=== PATIENT | female | born 1975 | race Caucasian/White ===

== ENCOUNTER → 2021-01-22 | Outpatient (CLI) | payer OTHER ==
[~2021-01-22] MED LIST: SUMA50TA3 PO; THYR90TA PO
[2021-01-22 09:39] LABS: BASOPHILS % (AUTO) 2 % (0-1); EOSINOPHILS % (AUTO) 3 % (1-7); LYMPHOCYTES % (AUTO) 30 % (22-44); MEAN CORPUSCULAR HEMOGLOBIN 20.5 pg (27.0-34.8); MEAN CORPUSCULAR HGB CONC 31.2 g/dL (32.4-35.8); MEAN PLATELET VOLUME 8.7 fL (7.4-10.4); MONOCYTES % (AUTO) 10 % (2-9); NEUTROPHILS % (AUTO) 56 % (42-75); PLATELET COUNT 272 x10^3/uL (130-400); RED BLOOD COUNT 3.85 x10^6/uL (3.82-5.3); RED CELL DISTRIBUTION WIDTH 17.8 % (9.6-15.2)
[2021-01-22 09:46] LABS: ANION GAP 5 mmol/L (5-15); CALCIUM 8.4 mg/dL (8.5-10.1); CHLORIDE 113 mmol/L (98-107); CREATININE 0.77 mg/dL (0.55-1.02)
[2021-01-22 09:57] LABS: MD MORPH REVIEW ONLY
[2021-01-22 09:58] LABS: HYPOCHROMIA 1+; MICROCYTOSIS 2+; POLYCHROMASIA 1+
[2021-01-22 09:59] LABS: <PLATELET ESTIMATE> ADEQUATE; <PLT MORPHOLOGY> NORMAL PLT MORPH; ANISOCYTOSIS 1+; OVALOCYTES 1+
== END | disposition home or self-care (01) ==
LOC: STAR 07:44
PROVIDERS: ATTEND Obstetrics & Gynecology Maternal & Fetal Medicine
DX: Z01.812 Encounter for preprocedural laboratory examination (principal); Z20.822 Contact with and (suspected) exposure to COVID-19; N92.0 Excessive and frequent menstruation with regular cycle; D21.9 Benign neoplasm of connective and other soft tissue, unspecified
CPT/HCPCS: 80048; 84702; 85025; 87635

== ENCOUNTER 2021-01-28 05:46 | Observation (INO) | payer OTHER ==
[~2021-01-28] VITALS: Ht 160 cm; Wt 72.1 kg
[2021-01-28 06:19] VITALS: BP 115/76
[2021-01-28] MEDS ORDERED: LACTATED RINGERS 1,000 ML IV SCH ×2 (06:30→13:00)
[2021-01-28] MEDS ORDERED: CHLORHEXIDINE 15 ML UDC MM ONE (06:30)
[2021-01-28 06:39] LABS: HCG UR SG 1.015 (1.003-1.030)
[2021-01-28] MEDS ORDERED: FENTANYL PF 250 MCG/5ML ONE (06:47)
[2021-01-28] MEDS ORDERED: MIDAZOLAM 1 MG/ML, 2ML ONE (06:47)
[2021-01-28] MEDS ORDERED: ROCURONIUM 10 MG/ML,10ML ONE (07:40)
[2021-01-28] MEDS ORDERED: DEXAMETHASONE 4 MG/ML, 1ML ONE (07:40)
[2021-01-28] MEDS ORDERED: CEFAZOLIN 1,000 MG ONE (07:40)
[2021-01-28] MEDS ORDERED: EPHEDRINE 50 MG/ML, 1ML ONE (07:40)
[2021-01-28] MEDS ORDERED: NEOSTIGMINE 1 MG/ML, 10ML ONE (07:40)
[2021-01-28] MEDS ORDERED: GLYCOPYRROLATE 0.2MG/1ML, 5ML ONE (07:40)
[2021-01-28] MEDS ORDERED: ONDANSETRON 2MG/ML, 2ML ONE ×2 (07:40→09:36)
[2021-01-28] MEDS ORDERED: PROPOFOL 10 MG/ML, 20ML ONE (07:40)
[2021-01-28] MEDS ORDERED: DIPHENHYDRAMINE 50 MG/ML, 1ML IVPush PRN (08:30)
[2021-01-28] MEDS ORDERED: METOCLOPRAMIDE 5 MG/ML, 2ML IVPush PRN (08:30)
[2021-01-28] MEDS ORDERED: DIAZEPAM 5 MG/ML, 2ML IVPush PRN (08:30)
[2021-01-28] MEDS ORDERED: METOPROLOL 1 MG/ML, 5ML IV PRN (08:30)
[2021-01-28] MEDS ORDERED: EPHEDRINE 50 MG/ML, 1ML IVPush PRN (08:30)
[2021-01-28] MEDS ORDERED: LABETALOL 5MG/ML, 20ML IV PRN (08:30)
[2021-01-28] MEDS ORDERED: ONDANSETRON 2MG/ML, 2ML IVPush PRN (08:30)
[2021-01-28] MEDS ORDERED: HALOPERIDOL 5 MG/ML IV PRN (08:30)
[2021-01-28] MEDS ORDERED: KETOROLAC 30 MG/1 ML IV PRN (08:30)
[2021-01-28] MEDS ORDERED: PROMETHAZINE 25 MG/ML, 1ML IVPush PRN (08:30)
[2021-01-28] MEDS ORDERED: ACETAMINOPHEN 325 MG TABLET PO PRN (08:30)
[2021-01-28] MEDS ORDERED: hydrALAzine 20 MG/ML, 1ML IV PRN (08:30)
[2021-01-28] MEDS ORDERED: HYDROmorphone 1 MG/ML, 1ML INJ IVPush PRN (08:30)
[2021-01-28] MEDS ORDERED: OXYcodone 5 MG/5 ML ORAL.SOL UDC PO PRN (08:30)
[2021-01-28] MEDS ORDERED: FENTANYL PF 100 MCG/2ML ONE ×2 (09:36→11:26)
[2021-01-28] MEDS ORDERED: OXYcodone 5 MG/5 ML ORAL.SOL UDC ONE (09:37)
[2021-01-28] MEDS: FENTANYL PF 100 MCG/2ML IV PRN ×3 (09:40→11:34)
[2021-01-28] MEDS ORDERED: METOCLOPRAMIDE 5 MG/ML, 2ML ONE (10:36)
[2021-01-28] MEDS ORDERED: PROMETHAZINE 25 MG/ML, 1ML ONE (11:07)
[2021-01-28] MEDS ORDERED: KETOROLAC 30 MG/1 ML ONE (11:15)
[2021-01-28] MEDS ORDERED: OXYcodone/APAP 5/325MG TABLET PO PRN (13:00)
[2021-01-28] MEDS ORDERED: morphine SULFATE 10 MG/ML, 1ML IV PRN (13:00)
[2021-01-28 13:30] VITALS: BP 115/79
[2021-01-28 14:32] LABS: MEAN CORPUSCULAR HEMOGLOBIN 20.2 pg (27.0-34.8); MEAN CORPUSCULAR HGB CONC 30.4 g/dL (32.4-35.8); PLATELET COUNT 248 x10^3/uL (130-400); RED BLOOD COUNT 4.01 x10^6/uL (3.82-5.3)
[2021-01-28] MEDS: ONDANSETRON 2MG/ML, 2ML IVPush PRN (16:29)
[2021-01-28] MEDS: KETOROLAC 30 MG/1 ML IV SCH ×2 (16:48→23:10)
[2021-01-28 20:17] VITALS: BP 99/63
[2021-01-29 00:29] VITALS: BP 96/54
[2021-01-29 04:21] VITALS: BP 99/60
[2021-01-29] MEDS: ONDANSETRON 2MG/ML, 2ML IVPush PRN ×2 (04:40→11:09)
[2021-01-29] MEDS: KETOROLAC 30 MG/1 ML IV SCH ×2 (04:49→11:09)
[2021-01-29 08:01] VITALS: BP 103/70
[2021-01-29] MEDS ORDERED: LACTATED RINGERS 1,000 ML IV SCH (13:00)
[2021-01-29 13:44] VITALS: BP 115/59
== END 2021-01-29 14:00 | disposition home or self-care (01) ==
LOC: OUT 05:46 → 4NE 12:35 → OUT 12:39 → DCLOUNGE 01-29 13:55
PROVIDERS: ADMIT Obstetrics & Gynecology Maternal & Fetal Medicine; ATTEND Obstetrics & Gynecology Maternal & Fetal Medicine
DX: D25.9 Leiomyoma of uterus, unspecified (principal); N92.0 Excessive and frequent menstruation with regular cycle; D50.0 Iron deficiency anemia secondary to blood loss (chronic); E03.9 Hypothyroidism, unspecified; G43.909 Migraine, unspecified, not intractable, without status migrainosus; Z88.0 Allergy status to penicillin; Z79.899 Other long term (current) drug therapy
CPT/HCPCS: 36415; 58150; 81025; 85014; 85018; 85027; 86850; 86900; 86923; 88307; 96374; 96375; 96376; G0378; J0690; J1100; J1885; J2250; J2405; J2550; J2704; J2710; J2765; J3010; J7120